=== PATIENT | male | born 1965 | race Caucasian/White ===

== ENCOUNTER → 2017-07-11 | Outpatient (CLI) | payer OTHER ==
[~2017-07-11] MED LIST: AMARYL PO; ASPIRIN81 M2 PO; FLONASE16 GM; GABAPENTIN300 M2 PO; JENTADUETO 2.51 EAC1; LEVEMIR100 U/ML SQ; LIPITOR20 MG PO; UROXATRAL10 MG PO
[2017-07-11 15:47] LABS: BASOPHIL# 0.1 X10e3 (0-0.3); BASOPHIL% 0.9 % (0-2.5); EOSINOPHIL# 0.7 X10e3 (0-0.7); EOSINOPHIL% 7.4 % (0.0-7.0); HEMATOCRIT 43.8 % (38.0-50.0); HEMOGLOBIN 14.7 gm/dL (13.0-16.0); LYMPHOCYTE% 20.9 % (17.0-45.0); MEAN CORPUSCULAR HEMOGLOBIN 27.8 PG (28-34); MEAN CORPUSCULAR HGB CONC 33.5 g/dL (30-36); MEAN PLATELET VOLUME 7.9 FL (6.5-11.5); MONOCYTE# 0.8 X10e3 (0-1.0); MONOCYTE% 8.1 % (3.0-12.0); NEUTROPHIL# 5.9 X10e3 (1.5-7.1); NEUTROPHIL% 62.7 % (40-75); PLATELET COUNT 246 X10e3 (140-420); RED BLOOD COUNT 5.27 X10e (3.90-5.60); RED CELL DISTRIBUTION WIDTH 14.7 % (11.0-15.5); WHITE BLOOD COUNT 9.4 X10e3 (4.0-10.5)
[2017-07-11 15:53] LABS: DIFF IND NO
== END | disposition home or self-care (01) ==
LOC: CLAB 15:26
PROVIDERS: Internal Medicine Endocrinology, Diabetes & Metabolism
DX: E29.1 Testicular hypofunction (principal); F52.9 Unspecified sexual dysfunction not due to a substance or known physiological condition
CPT/HCPCS: 36415; 84403; 85025